=== PATIENT | female | born 1990 | race African-American/Black ===

== ENCOUNTER 2019-09-02 08:35 | Emergency (ER) | payer OTHER ==
[~2019-09-02] VITALS: Ht 175.3 cm; Wt 163.0 kg
[~2019-09-02 08:35] MED LIST: AZIT500T2 PO; AZIT500T8 PO; DEXTL PO; TOPUD PO
[2019-09-02] MEDS ORDERED: ONDANSETRON HCL 4MG/2ML INJ IV STA (09:12)
[2019-09-02] MEDS ORDERED: MAGNESIUM/ALUMINUM HYDROXIDE/SIMETHICONE 30ML UDC PO STA ×2 (09:12→11:44)
[2019-09-02] MEDS ORDERED: VISCOUS LIDOCAINE 2% 15 ML UDC PO STA ×2 (09:12→11:44)
[2019-09-02] MEDS ORDERED: SODIUM CHLORIDE 0.9% 1,000 ML IV ONE (09:12)
[2019-09-02 09:23] LABS: CLARITY URINE CLEAR (CLEAR); COLOR URINE YELLOW (YELLOW); KETONES URINE NEGATIVE (NEGATIVE); LEUKOCYTE ESTERASE URINE NEGATIVE (NEGATIVE); NITRITE URINE NEGATIVE (NEGATIVE); OCCULT BLOOD URINE 2+ (NEGATIVE); PH URINE 5.5 (4.5-8.0); PROTEIN URINE NEGATIVE (NEGATIVE)
[2019-09-02 09:24] LABS: BASOPHILS % 1.2 % (0.0-2.0); EOSINOPHILS % 2.5 % (0.0-5.0); HEMATOCRIT. 37.9 % (36.0-48.0); HEMOGLOBIN. 11.7 g/dL (12.0-16.0); MEAN CORPUSCULAR HEMOGLOBIN 23.3 pg (28.0-32.0); MEAN CORPUSCULAR VOLUME 75.4 fL (81.0-99.0); MEAN PLATELET VOLUME 8.5 fl (7.4-10.4); MONOCYTES % 7.2 % (2.0-8.0); NEUTROPHILS % 65.1 % (40.0-76.0); PLATELET 299 x1000/uL (130-400); RED BLOOD CELL COUNT 5.03 mill/uL (4.2-5.4); RED CELL DISTRIBUTION WIDTH 16.9 % (11.6-14.6)
[2019-09-02 09:31] LABS: CHLORIDE 102 mEq/L (98-107)
[2019-09-02 09:34] LABS: PROTHROMBIN TIME 10.3 sec (9.6-11.0)
[2019-09-02 09:48] LABS: HCG SCREEN NEGATIVE
[2019-09-02 12:57] VITALS: BP 166/99
== END 2019-09-02 13:17 | disposition home or self-care (01) ==
LOC: ER 08:53
DX: K29.70 Gastritis, unspecified, without bleeding (principal); M79.18 Myalgia, other site; J45.909 Unspecified asthma, uncomplicated; I10 Essential (primary) hypertension; Z98.890 Other specified postprocedural states; Z79.899 Other long term (current) drug therapy
CPT/HCPCS: 36415; 80053; 81003; 81025; 83690; 84703; 85025; 85610; 93005; 96374; 99284; J2405; J7030

== ENCOUNTER 2022-05-29 09:52 | Emergency (ER) | payer MEDICAID, OTHER ==
[~2022-05-29] VITALS: Ht 175.3 cm; Wt 163.0 kg
[2022-05-29 11:03] LABS: CLARITY URINE CLEAR (CLEAR); COLOR URINE DARK YELLOW (YELLOW); KETONES URINE TRACE (NEGATIVE); LEUKOCYTE ESTERASE URINE NEGATIVE (NEGATIVE); NITRITE URINE NEGATIVE (NEGATIVE); OCCULT BLOOD URINE NEGATIVE (NEGATIVE); PH URINE 5.5 (4.5-8.0); PROTEIN URINE TRACE (NEGATIVE); SPECIFIC GRAVITY URINE 1.035 (1.005-1.030)
[2022-05-29 11:14] LABS: HEMATOCRIT 40.5 % (36.0-48.0); HEMOGLOBIN 12.3 g/dL (12.0-16.0); MEAN CORPUSCULAR HEMOGLOBIN 20.2 pg (28.0-32.0); MEAN CORPUSCULAR VOLUME 66.2 fL (81.0-99.0); PLATELET 379 x1000/uL (130-400); RED BLOOD CELL COUNT 6.12 mill/uL (4.2-5.4); RED CELL DISTRIBUTION WIDTH 23.4 % (11.6-14.6)
[2022-05-29 11:34] LABS: CHLORIDE 101 mEq/L (98-107)
[2022-05-29] MEDS ORDERED: ONDANSETRON 4MG ODT PO ONE (11:45)
[2022-05-29] MEDS ORDERED: MAGNESIUM/ALUMINUM HYDROXIDE/SIMETHICONE 30ML UDC PO ONE (11:45)
[2022-05-29] MEDS ORDERED: VISCOUS LIDOCAINE 2% 15 ML UDC MM STA (11:52)
[2022-05-29] MEDS ORDERED: FAMOTIDINE 20MG TABLET PO ONE (12:00)
[2022-05-29 13:11] VITALS: BP 144/95
[2022-05-29] MEDS ORDERED: IBUP-2028 MT ×2 (13:15)
[2022-05-29] MEDS ORDERED: ACET-2708 MT (13:15)
[2022-05-29] MEDS ORDERED: FAMO-135 MT (13:15)
[2022-05-29] MEDS ORDERED: NAPR500T7 MT (13:15)
[2022-05-29] MEDS ORDERED: CARB-173 RIGHT EAR (13:21)
== END 2022-05-29 13:33 | disposition home or self-care (01) ==
LOC: ER 10:04
DX: K80.20 Calculus of gallbladder without cholecystitis without obstruction (principal); J45.909 Unspecified asthma, uncomplicated; I10 Essential (primary) hypertension
CPT/HCPCS: 36415; 76705; 80053; 81003; 81025; 83690; 85027; 99284; Q0162

== ENCOUNTER 2024-07-02 13:26 | Emergency (ER) | payer OTHER ==
[~2024-07-02] VITALS: Ht 175.3 cm; Wt 150.0 kg
[~2024-07-02 13:26] MED LIST changes: +ACET-2708 MT; +DEBROX RIGHT EAR; +FAMO-135 MT; +NAPR-1486 MT
[2024-07-02 13:27] VITALS: O2SAT 75
[2024-07-02] MEDS: FUROSEMIDE 40MG/4ML VIAL IVP ONE (13:56)
[2024-07-02 14:26] LABS: CARBON DIOXIDE 30 mEq/L (21-32); CHLORIDE 103 mEq/L (98-107); POTASSIUM 4.3 mEq/L (3.5-5.1); SODIUM 141 mEq/L (136-145)
[2024-07-02 14:31] LABS: GLUCOSE 153 mg/dL (70-105)
[2024-07-02 14:32] LABS: INR 1.2; PARTIAL THROMBOPLASTIN TIME 26.2 sec (23.4-31.0); PROTHROMBIN TIME 12.9 sec (9.6-11.0); UREA NITROGEN BLOOD 7 mg/dL (9-23)
[2024-07-02 14:37] LABS: BASOPHILS % 1.8 % (0.0-2.0); EOSINOPHILS % 1.8 % (0.0-5.0); HCG SCREEN NEGATIVE; HEMATOCRIT. 41.8 % (36.0-48.0); HEMOGLOBIN. 11.8 g/dL (12.0-16.0); LYMPHOCYTES % 29.5 % (20.0-50.0); MEAN CORPUSCULAR HEMOGLOBIN 16.9 pg (28.0-32.0); MEAN CORPUSCULAR HGB CONC 28.1 g/dL (31.0-37.0); MONOCYTES % 6.4 % (2.0-8.0); NEUTROPHILS % 60.5 % (40.0-76.0); PLATELET 324 x1000/uL (130-400); RED BLOOD CELL COUNT 6.97 mill/uL (4.2-5.4); RED CELL DISTRIBUTION WIDTH 23.9 % (11.6-14.6); WHITE BLOOD COUNT 6.8 x1000/uL (4.5-11.0)
[2024-07-02 14:42] LABS: TROPONIN I HIGH SENSITIVITY 7 ng/L (3.0-34)
[2024-07-02 14:45] LABS: ADD RBC MORPHOLOGY YES; DIFFERENTIAL COMMENT 1
[2024-07-02 15:22] LABS: ANISOCYTOSIS 3+; GIANT PLATELETS FEW; PLATELET ESTIMATE NORMAL
[2024-07-02 15:23] LABS: HYPOCHROMASIA 3+; MICROCYTOSIS 3+; TARGET CELLS 2+
[2024-07-02 17:50] VITALS: BP 135/95; PULSE 79; RESP 22; TEMP 36.3; O2SAT 93
== END 2024-07-02 18:25 | disposition short-term general hospital (02) ==
LOC: ER 14:07
DX: I11.0 Hypertensive heart disease with heart failure (principal); I50.9 Heart failure, unspecified; J45.909 Unspecified asthma, uncomplicated; R09.02 Hypoxemia; F17.200 Nicotine dependence, unspecified, uncomplicated; Z79.1 Long term (current) use of non-steroidal anti-inflammatories (NSAID); Z79.899 Other long term (current) drug therapy; Z98.890 Other specified postprocedural states
CPT/HCPCS: 80048; 84703; 83880; 85025; 85610; 85730; 86850; 86900; 86901; 84484; 36415; 71045; 93005; 96374; 99291; J1940; Z7610 ×5